=== PATIENT | female | born 1955 ===

== ENCOUNTER 2018-01-02 06:38 | Inpatient (IN) | payer MEDICARE ==
--- NOTE | 2017-12-20 16:43 | HP ---
HISTORY AND PHYSICAL: DATE OF ADMISSION/SURGERY: 01/02/18 SURGEON: Vivienne Mcgarry MD.* (DICTATED BY AUGUSTA DRAPER) PROCEDURE: Left total knee arthroplasty. CHIEF COMPLAINT: Left knee pain. HISTORY OF PRESENT ILLNESS: Ms. Ellison is a 62-year-old female with complaints of left knee pain. She has failed conservative management and elected to proceed with a left total knee arthroplasty which is scheduled for with Dr. Mcgarry. PAST MEDICAL HISTORY: 1. Hypothyroidism. 2. Depression and anxiety. 3. Hepatitis B. 4. Liver cirrhosis. PAST SURGICAL HISTORY: Denies. CURRENT MEDICATIONS: 1. Ventolin inhaler. 2. Celexa 60 mg daily. 3. Flunisolide nasal spray. 4. Starrucca 150 mg daily. 5. Loratadine 10 mg daily. 6. Multivitamin. 7. Omeprazole 40 mg daily. 8. Polyethylene glycol. 9. Levothyroxine 50 mcg daily. ALLERGIES: PENICILLIN. FAMILY HISTORY: Coronary artery disease, diabetes and cancer. SOCIAL HISTORY: She is a 62-year-old female. She lives with her sister. She has a history of alcohol abuse. She denies use of drugs or alcohol. She does not smoke. REVIEW OF SYSTEMS: A complete 14-point review of systems was reviewed with the patient and was positive for hypothyroidism, seizures and hepatitis B. PHYSICAL EXAMINATION GENERAL: She is well developed, well nourished, in no acute distress. VITAL SIGNS: She stands 5 feet 6 inches tall, weighs 185 pounds. Her blood pressure is 122/76, her heart rate is 58. HEENT: Normocephalic, atraumatic. NECK: Supple. No palpable lymph nodes. PULMONARY: The lungs are clear to auscultation bilaterally. CARDIO: Regular rate and rhythm. Strong S1, S2. ABDOMEN: Soft, nontender, nondistended. NEUROLOGIC: She is alert and oriented x3. Cranial nerves II through XII are intact. MUSCULOSKELETAL: Left lower extremity: The skin is intact. She has no open wounds or abrasions. She has some tenderness over the medial and lateral joint line. There is a moderate joint effusion. Range of motion is 5 to 120 degrees with patellofemoral crepitus. She has 2+ dorsalis pedis pulses, intact sensation and her lower extremity muscle group strengths are intact at 5/5. ASSESSMENT AND PLAN: Ms. Ellison is a 62-year-old female with complaints of left knee pain secondary to end-stage osteoarthritis. She has failed conservative management and elected to proceed with a left total knee arthroplasty, which is scheduled for 01/02/[address] Mcgarry discussed the risks and the benefits of the surgery at today's visit and all of her questions were answered. She will follow up with Dr. Mcgarry 2 weeks after the surgery. AUGUSTA DRAPER [id number]/[facility] #: [id number] MTDLindsey
[~2018-01-02 06:38] MED LIST: Acetaminophen IV 1GM/100ML * 1,000 MG/100 ML VIAL IVPB ONE; Buffered Lidocaine 0.9% SYRIN* 5 ML/SYR SYRINGE INTRADERM ONE; Dexamethasone IV* 4 MG/ML 1 ML (4 MG) IV SLOW PU ONE; Famotidine IV* 10 MG/ML 2 ML (20 mg) IV ONE; Gabapentin CAP(*) 300 MG PO ONE; Levalbuterol 0.63MG/3ML NEB* UNIT OF USE INH ONE
[2018-01-02] MEDS ORDERED: Famotidine IV* 10 MG/ML 2 ML (20 mg) ONE (07:01)
[2018-01-02] MEDS ORDERED: Gabapentin CAP(*) 300 MG ONE (07:01)
[2018-01-02] MEDS ORDERED: Dexamethasone IV* 4 MG/ML 1 ML (4 MG) ONE (07:01)
[2018-01-02] MEDS ORDERED: Levalbuterol 1.25MG/0.5ML NEB ONE (07:01)
[2018-01-02] MEDS ORDERED: Acetaminophen IV 1GM/100ML * 100 ML ONE (07:02)
[2018-01-02] MEDS ORDERED: Clindamycin 900 MG IVPREMIX(* 900 MG/50 ML SDV IV ONE (07:02)
[2018-01-02] MEDS ORDERED: Bupivacaine 0.5% SDV PF* 10-30ML VIAL ONE ×2 (07:43→08:58)
[2018-01-02] MEDS ORDERED: Midazolam* 1 MG/ML 10 ML VIAL (10 MG) ONE (07:49)
[2018-01-02] MEDS ORDERED: fentaNYL* 50 MCG/ML 2 ML VIAL (100 MCG VIAL) ONE (07:49)
[2018-01-02] MEDS ORDERED: celeCOXIB CAP* 200 MG PO ONE (08:17)
[2018-01-02] MEDS ORDERED: celeCOXIB CAP* 100 MG ONE (08:23)
[2018-01-02] MEDS ORDERED: Ondansetron INJ* 2 MG/ML VIAL ONE (08:58)
[2018-01-02] MEDS ORDERED: ROPIVACAINE 5 MG/ML 30 ML BTL (0.5%) ONE (08:58)
[2018-01-02] MEDS ORDERED: Bisacodyl SUPP* 10 MG SUPP PR PRN (09:18)
[2018-01-02] MEDS ORDERED: Cyclobenzaprine TAB* 10 MG PO PRN (09:18)
[2018-01-02] MEDS ORDERED: Morphine INJ* 2 MG/ML 1 ML CARPUJECT IV PRN (09:18)
[2018-01-02] MEDS ORDERED: Ondansetron TAB* 4 MG PO PRN (09:18)
[2018-01-02] MEDS ORDERED: Polyethylene Glycol 3350* 17 GM PACKET PO PRN (09:18)
[2018-01-02] MEDS ORDERED: Ondansetron INJ* 2 MG/ML VIAL IV PRN ×2 (09:18→10:01)
[2018-01-02] MEDS ORDERED: diPHENhydraMINE IV* 50 MG/ML 1 ml VIAL (BENADRYL) IV PRN (09:18)
[2018-01-02] MEDS ORDERED: Magnesium Hydroxide LIQ* 30 ML UDC PO PRN (09:18)
[2018-01-02] MEDS ORDERED: Acetaminophen TAB* 325 MG PO PRN (09:18)
[2018-01-02] MEDS ORDERED: Phenylephrine INJ* 10 MG/ML 1 ML VIAL (10 MG) ONE (09:23)
[2018-01-02] MEDS ORDERED: DiMENhydriNATE IV* 50 MG/ML VIAL IV PUSH PRN (10:01)
[2018-01-02] MEDS ORDERED: fentaNYL* 50 MCG/ML 2 ML VIAL (100 MCG VIAL) IV PRN (10:01)
[2018-01-02] MEDS ORDERED: HYDROmorphone INJ* 1 MG/ML CARPUJECT SYRINGE IV PRN (10:01)
[2018-01-02] MEDS ORDERED: Naloxone* 0.4 MG/ML 1 ML VIAL IV PRN (10:01)
[2018-01-02] MEDS ORDERED: Scopolamine 1.5 mg* PATCH TRANSDERM PRN (10:01)
--- NOTE | 2018-01-02 13:02 | RAD ---
HISTORY: Status post left knee arthroplasty COMPARISONS: None VIEWS: 2, Frontal and lateral views of the left knee FINDINGS: BONE DENSITY: Normal. BONES: The patient is status post left knee arthroplasty. There is no hardware failure or osteolysis. JOINTS: The patient is status post left knee arthroplasty. ALIGNMENT: There is no dislocation. SOFT TISSUES: There is post surgical change to the soft tissues. OTHER FINDINGS: None. IMPRESSION: STATUS POST LEFT KNEE ARTHROPLASTY
[2018-01-02] MEDS: oxyCODONE/Acetamin 5/325 MG* TAB PO PRN ×2 (15:45→16:46)
[2018-01-02] MEDS: Clindamycin 600 MG IVPREMIX(* 600 MG/50 ML SDV IV SCH (17:39)
[2018-01-02] MEDS: Magnesium Hydroxide LIQ* 30 ML UDC PO SCH (22:27)
[2018-01-02] MEDS: Docusate CAP* 100 MG PO SCH (22:27)
[2018-01-02] MEDS: oxyCODONE TAB* 5 MG TAB PO PRN (22:27)
[2018-01-02] MEDS: chlordiazePOXIDE CAP* 25 MG PO SCH (23:22)
[2018-01-03] MEDS: oxyCODONE/Acetamin 5/325 MG* TAB PO PRN ×4 (01:29→20:05)
[2018-01-03] MEDS: Clindamycin 600 MG IVPREMIX(* 600 MG/50 ML SDV IV SCH ×2 (01:30→09:38)
[2018-01-03] MEDS: oxyCODONE TAB* 5 MG TAB PO PRN ×2 (04:42→18:24)
[2018-01-03 05:57] LABS: Hematocrit 30 % (35-47); Hemoglobin 10.3 g/dl (12.0-16.0); Mean Platelet Volume 9.6 um3 (7.4-10.4); Platelet Count 143 10^3/ul (150-450)
[2018-01-03 06:17] LABS: EGFR Non-African American 68.2 (>60)
--- NOTE | 2018-01-03 07:38 | PN ---
Progress Note - Progress Note Date of Service: 01/03/18 SOAP: Subjective: Pt. is alert, c/o severe pain overnight. She has some weakness with EHL remaining, can dorsiflex. She is having R knee pain and would like a steroid injection. Objective: RLE - knee with moderate effusion, 5-120 degrees motion, ttp mjl. LLE - dressing changed, inc c/d/i. distally +df/pf, minimal EHL. full sens lt , 2+dp pulse. Vital Signs: Temp Pulse Resp BP Pulse Ox 98.6 F 60 18 101/52 97 01/02/18 23:49 01/02/18 23:49 01/03/18 04:49 01/02/18 23:49 01/02/18 23:49 Laboratory Results - last 24 hr 01/03/18 01/03/18 05:39 05:39 Hgb 10.3 L Hct 30 L Plt Count 143 L MPV 9.6 Sodium 139 Potassium 3.9 Chloride 106 Carbon Dioxide 27 Anion Gap 6 BUN 15 Creatinine 0.85 Est GFR ( Amer) 87.7 Est GFR (Non-Af Amer) 68.2 BUN/Creatinine Ratio 17.6 Glucose 126 H Calcium 8.6 Assessment: 62 yo F pod 1 s/p LTKA Plan: Change patient to inpatient admission for LTKA - uncontrolled pain and some EHL weakness - will need admission for additional pain control and gait training. wbat pt/ot lovenox today, coumadin tonight PROCEDURE: Time out performed at bedside. Under sterile conditions, 80 mg depomedrol and 6 cc 1/2% marcaine was injected into the right knee joint. Pt. tolerated the procedure well and had no complication.
[2018-01-03] MEDS: Docusate CAP* 100 MG PO SCH ×2 (08:16→20:05)
[2018-01-03] MEDS: Magnesium Hydroxide LIQ* 30 ML UDC PO SCH ×2 (08:16→20:06)
[2018-01-03] MEDS: Enoxaparin(*) 30 MG/0.3 ML SYR SUBCUT SCH (11:34)
--- NOTE | 2018-01-03 14:53 | OP ---
OPERATIVE REPORT: DATE OF OPERATION: 01/02/18 DATE OF : 59 SURGEON: Vivienne Mcgarry MD. BOXING TRAINER: AUGUSTA Meade. Ms. Casillas did help throughout the procedure with preparation of the leg, wound retraction, manipul ation of the knee, and wound closure. ANESTHESIOLOGIST: Dr. Elkins. ANESTHESIA: Spinal. PRE-OP DIAGNOSIS: Severe endstage degenerative osteoarthritis of the left knee joint. POST-OP DIAGNOSIS: Severe endstage degenerative osteoarthritis of the left knee joint. OPERATIVE PROCEDURE: Left total knee arthroplasty. TOURNIQUET TIME: 42 minutes. COMPLICATIONS: None. SPECIMENS: Bone and cartilage from the left knee joint was sent to Pathology. ESTIMATED BLOOD LOSS: 300 cc. HARDWARE USED: This is a cemented [employer] total knee arthroplasty hardware. Two packages o f Simplex bone cement. For the femur, a size 4 narrow left posterior stabilized Legion Oxinium femor al component. For the tibia, a size 3 left tibial base plate. For the insert, an 11-mm posterior st abilized articular insert, size 3-4. For the patella, a 32-mm 3-peg all poly patella. BRIEF HISTORY/INDICATIONS: Ms. Ellison is a 62-year-old female with years of increasingly severe l eft knee pain. She failed conservative treatment with the anti-inflammatories, pain medications, int raarticular injection, and home exercise program. Radiographs showed advanced arthritis in the left knee joint. Due to continued pain and decreased quality of life, she elected to undergo a left total knee arthroplasty. Informed consent was obtained from the patient. She understood the risks of anderson lurdes included, but were not limited to bleeding, infection, damage to nearby structures, continued pa in, need for further surgery, intraoperative fracture, nerve palsy, hardware failure or loosening, kn ee stiffness, loss of motion, stroke, heart attack, blood clot, and . She wished to to proceed. INTRAOPERATIVE FINDINGS: Intraoperatively, the patient was noted to have severe arthritis with compl ete loss of cartilage along the medial and patellofemoral compartments. DESCRIPTION OF PROCEDURE: Ms. Ellison was identified in the preanesthesia unit. Her left lower ext remity was marked as the correct operative side. Informed consent was signed and placed in the chart . Patient was taken to the operating room and placed under spinal anesthesia. A Rendon catheter was placed. Tourniquet was placed on the left thigh. The left lower extremity was prepped and draped in the usual sterile fashion. Preop time-out was made to correctly identify the patient, side, and sit e. Appropriate perioperative antibiotics were given within 1 hour of incision. Tourniquet was inflated until tourniquet time for this procedure was 42 minutes. A 12-cm midline inc ision was made with a 10-blade and carried down to the extensor mechanism. A new 10 blade was used t o make a standard medial parapatellar arthrotomy. The patella was subluxed laterally. Electrocauter y was used to subperiosteally elevate soft tissues off the superomedial to the mid sagittal plane. T he knee was flexed up. The anterior horn of the lateral meniscus and ACL were completely released. A drill was used to enter the distal femur. Intramedullary distal femoral cutting guide was pinned on the distal femur. 9-mm of distal femur was removed using the oscillating saw. Next, the external r otation guide was pinned on the distal femur and the distal femur was size 4. Size 4 multi- cutting jig was pinned on the distal femur. Oscillating saw was used to make the appropriate 4 chamfer cuts. The PCL was completely released and the tibia was subluxed anteriorly. Extramedullary tibial cutting guide was pinned on the proximal tibia. Oscillating saw was used to make a proximal tibial cut perpe ndicular to the mechanical axis of the tibia. The bone was carefully removed. The knee was brought out into full extension. A spacer block had good fit with satisfactory medial and lateral ligamentou s balancing. Flexion and extension gaps were well balanced. The knee was flexed up. Lamina spreade r was placed both medially and laterally. Any remaining meniscus was removed using electrocautery. Curved osteotome was used to remove any posterior osteophytes. Tibial tray and drop aaron were placed, once again confirmed a satisfactory tibial cut. This was confirmed. A left, narrow, size 4 femoral trial was impacted onto the distal femur and had a good fit. The box for the posterior stabilized implant was prepared using a reamer and box cut osteotome. Size 3 tibia l tray trial with an 11 mm insert trial was placed. The knee was taken through a range of motion. T he knee had full extension to 130 degrees of flexion with satisfactory patellofemoral tracking. The patella was everted. 9 mm of patellar bone and cartilage were carefully removed using an oscillating saw. Patella was sized to a size 32. Three peg holes were drilled through the size 32 guide. The 32 trial patellar trial was placed and the knee was taken through a range of motion. There was satis factory patellofemoral tracking. Next, all trials were removed. The tibia was subluxed anteriorly an d sized to a size 3. Proximal tibia was prepared using a size 3 keel punch. All bony cut surfaces w ere copiously irrigated with sterile saline and dried. Final implants were cemented into place start ing with the tibia followed by the femur and last the patella. An 11-mm insert trial was placed and the knee was taken out into full extension. Tourniquet was turned down at 42 minutes. The cement wa s allowed to fully cure. The knee was copiously irrigated with sterile saline. Electrocautery was u sed to obtain meticulous hemostasis. Once the cement had fully cured, the insert trial was removed. Final insert chosen was a 11 mm posterior stabilized articular insert size 3-4. This was locked int o position on the tibial tray. Stability of the insert was checked and rechecked and noted to be stab le. The extensor mechanism was closed over a medium Hemovac drain using interrupted #1 Vicryls. The rest of the incision was closed in a layered-fashion using 0 and 2-0 Vicryls. Skin was closed using running 3-0 nylon suture. Sterile Xeroform, 4x4s, and Webril were used to cover the incision. Rahul wrap and cold pack were placed over this. The patient's anesthesia was reversed without difficulty. She was taken to the PACU in stable condition. Intended weightbearing will be weightbearing as tole rated. Intended DVT prophylaxis will be Coumadin with a Lovenox bridge. [id number]/[facility] #: [id number]
[2018-01-03] MEDS ORDERED: NS 0.9% 500 ML* 500 ML IV ONE ×2 (17:00→22:50)
[2018-01-03] MEDS: chlordiazePOXIDE CAP* 25 MG PO SCH (18:24)
[2018-01-04] MEDS: oxyCODONE TAB* 5 MG TAB PO PRN (01:39)
[2018-01-04] MEDS: Levothyroxine TAB* 50 MCG TAB PO SCH (05:16)
--- NOTE | 2018-01-04 07:50 | PN ---
Progress Note - Progress Note Date of Service: 01/04/18 SOAP: Subjective: resting comfortably with no complaints Objective: Vital Signs Temp Pulse Resp BP Pulse Ox 98.6 F 93 18 129/52 95 01/04/18 07:20 01/04/18 07:20 01/04/18 07:20 01/04/18 07:20 01/04/18 07:20 Laboratory Last Values Hgb 10.3 g/dl (12.0-16.0) L 01/03/18 05:39 Hct 30 % (35-47) L 01/03/18 05:39 Plt Count 143 10^3/ul (150-450) L 01/03/18 05:39 MPV 9.6 um3 (7.4-10.4) 01/03/18 05:39 Sodium 139 mmol/L (139-145) 01/03/18 05:39 Potassium 3.9 mmol/L (3.5-5.0) 01/03/18 05:39 Chloride 106 mmol/L (101-111) 01/03/18 05:39 Carbon Dioxide 27 mmol/L (22-32) 01/03/18 05:39 Anion Gap 6 mmol/L (2-11) 01/03/18 05:39 BUN 15 mg/dL (6-24) 01/03/18 05:39 Creatinine 0.85 mg/dL (0.51-0.95) 01/03/18 05:39 Est GFR ( Amer) 87.7 (>60) 01/03/18 05:39 Est GFR (Non-Af Amer) 68.2 (>60) 01/03/18 05:39 BUN/Creatinine Ratio 17.6 (8-20) 01/03/18 05:39 Glucose 126 mg/dL (70-100) H 01/03/18 05:39 Calcium 8.6 mg/dL (8.6-10.3) 01/03/18 05:39 incision: c/d; dressing changed PE: able to dorsi flex/ plantar flex, mild weakness with EHL and ankle dorsi flexion; intact sensation Assessment: s/p left TKA Plan: 1) continue PT/OT- WBAT 2) continue Lovenox for DVT prophylaxis 3) likely home tomorrow
[2018-01-04 07:54] LABS: Hematocrit 25 % (35-47); Hemoglobin 8.6 g/dl (12.0-16.0)
[2018-01-04] MEDS: Magnesium Hydroxide LIQ* 30 ML UDC PO SCH ×2 (08:43→21:24)
[2018-01-04] MEDS: Docusate CAP* 100 MG PO SCH ×2 (08:43→21:24)
[2018-01-04] MEDS: Enoxaparin(*) 30 MG/0.3 ML SYR SUBCUT SCH (11:55)
[2018-01-04] MEDS: Ibuprofen TAB* 600 MG PO PRN ×2 (13:05→21:45)
[2018-01-04] MEDS: chlordiazePOXIDE CAP* 25 MG PO SCH (18:32)
[2018-01-04] MEDS: Albuterol HFA INHALER* 8 gm MDI INH PRN (18:33)
[2018-01-05] MEDS: Albuterol HFA INHALER* 8 gm MDI INH PRN ×2 (00:26→09:48)
[2018-01-05] MEDS ORDERED: Scopolamine PATCH Remove* 1 NOTE MISC PATCH OFF ONE (06:00)
[2018-01-05] MEDS: Levothyroxine TAB* 50 MCG TAB PO SCH (06:21)
[2018-01-05] MEDS: Docusate CAP* 100 MG PO SCH ×2 (07:42→20:30)
[2018-01-05] MEDS: Magnesium Hydroxide LIQ* 30 ML UDC PO SCH ×2 (07:43→20:30)
[2018-01-05] MEDS: Ibuprofen TAB* 600 MG PO PRN ×2 (08:53→20:12)
--- NOTE | 2018-01-05 10:52 | PN ---
Progress Note - Progress Note Date of Service: 01/05/18 SOAP: Subjective: resting comfortably with minimal complaints of pain, continues to have moderate drowsiness, hard to wake up for questions but A&O. Objective: Vital Signs Temp Pulse Resp BP Pulse Ox 98.1 F 82 16 129/48 99 01/05/18 07:32 01/05/18 07:32 01/05/18 08:00 01/05/18 07:32 01/05/18 08:00 Laboratory Last Values Hgb 8.6 g/dl (12.0-16.0) L 01/04/18 07:45 Hct 25 % (35-47) L 01/04/18 07:45 Plt Count 143 10^3/ul (150-450) L 01/03/18 05:39 MPV 9.6 um3 (7.4-10.4) 01/03/18 05:39 Sodium 139 mmol/L (139-145) 01/03/18 05:39 Potassium 3.9 mmol/L (3.5-5.0) 01/03/18 05:39 Chloride 106 mmol/L (101-111) 01/03/18 05:39 Carbon Dioxide 27 mmol/L (22-32) 01/03/18 05:39 Anion Gap 6 mmol/L (2-11) 01/03/18 05:39 BUN 15 mg/dL (6-24) 01/03/18 05:39 Creatinine 0.85 mg/dL (0.51-0.95) 01/03/18 05:39 Est GFR ( Amer) 87.7 (>60) 01/03/18 05:39 Est GFR (Non-Af Amer) 68.2 (>60) 01/03/18 05:39 BUN/Creatinine Ratio 17.6 (8-20) 01/03/18 05:39 Glucose 126 mg/dL (70-100) H 01/03/18 05:39 Calcium 8.6 mg/dL (8.6-10.3) 01/03/18 05:39 incision: c/d PE: weak EHL/ankle dorsi flexion but able to dorsi flex and lift toe; intact sensation Assessment: s/p left TKA Plan: 1) PT/OT- will work with stairs this afternoon 2) Lovenox for DVT prophylaxis 3) hopefully home tomorrow
[2018-01-05 12:33] LABS: Hematocrit 23 % (35-47); Hemoglobin 7.9 g/dl (12.0-16.0)
[2018-01-05] MEDS: Enoxaparin(*) 30 MG/0.3 ML SYR SUBCUT SCH (12:40)
[2018-01-06] MEDS: Ibuprofen TAB* 600 MG PO PRN ×2 (04:39→10:41)
[2018-01-06] MEDS: Levothyroxine TAB* 50 MCG TAB PO SCH (04:39)
[2018-01-06 05:56] LABS: Hematocrit 27 % (35-47)
[2018-01-06 07:51] VITALS: BP 118/59
--- NOTE | 2018-01-06 08:40 | PN ---
Progress Note - Progress Note Date of Service: 01/06/18 SOAP: Subjective: 62 y/o female s/p L TKA by Dr. Mcgarry 01/02. VSS, blood pressure slightly low- normal, afebrile overnight. Patient feeling well, eager for D/C to home. No questions/ complaints. Objective: General- Well appearing, NAD, AO sitting in chair comfortably MSK- LLE- + DF/PF, PT 2+, negative homans sign L LE, dressing changed, + ecchymosis around knee, calf, non-tender, no drainage from incision. C/D/I. Redressing without difficulty. SITLT. Vital Signs Temp 97.6 F 01/06/18 07:33 Pulse 75 01/06/18 07:33 Resp 14 01/06/18 07:33 BP 118/59 01/06/18 07:33 Pulse Ox 98 01/06/18 07:33 Intake & Output 01/05/18 01/06/18 01/06/18 18:59 06:59 18:59 Intake Total 1081 1000 100 Output Total 1400 550 400 Balance -319 450 -300 Intake: IV Fluids 251 LR 251 Oral 830 1000 100 Output: Urine 1400 550 400 Other: Estimated Void Small # Bowel Movements 1 Estimated Stool Amount Small # Voids 1 Assessment: Stable 62 y/o female s/p L TKA by Dr. Mcgarry 01/02. Plan: - DVT prophylaxis- lovenox. ASA 325mg BID for home. - Continue PT/ OT - working well with PT, cleared for home today if continues to do well. - Follow up with Dr. Mcgarry within 10-14 days - H&H - stable, improved appropriately s/p 1 unit 01/05. - post-op IV ABX - completed. - D/C to home today with home services.
[2018-01-06] MEDS: Magnesium Hydroxide LIQ* 30 ML UDC PO SCH (09:17)
[2018-01-06] MEDS: Docusate CAP* 100 MG PO SCH (09:17)
[2018-01-06] MEDS: Enoxaparin(*) 30 MG/0.3 ML SYR SUBCUT SCH (10:41)
--- NOTE | 2018-01-08 03:59 | DS ---
DISCHARGE SUMMARY: DATE OF ADMISSION: 01/02/18 DATE OF DISCHARGE: 01/06/18 PROVIDER: Dr. Vivienne Mcgarry.* (DICTATED BY AUGUSTA RODRIGUEZ) CHIEF COMPLAINT: 1. Left knee pain. 2. Hypothyroidism. 3. Depression. 4. Anxiety. 5. Hepatitis C. 6. Liver cirrhosis. DISCHARGE DIAGNOSES: 1. Status post left total knee arthroplasty. 2. Hypothyroidism. 3. Depression. 4. Anxiety. 5. Hepatitis C. 6. Liver cirrhosis. PROCEDURE: Left total knee arthroplasty. CONSULTATIONS: 1. Physical Therapy. 2. Occupational Therapy. 3. Pain Management. BRIEF HISTORY: Ms. Ellison is a pleasant 62-year-old female with end-stage degenerative osteoarthritis of the left knee, who failed conservative treatment and elected to undergo a left total knee arthroplasty by Dr. Vivienne Mcgarry on . HOSPITAL COURSE: Mrs. Ellison was admitted to [facility] on , where she underwent uncomplicated left total knee arthroplasty, estimated blood loss 300 cc. Postoperatively, she recovered on the surgical short stay unit. Her Rendon was removed on postoperative day #2. She was voiding on her own without difficulty. The patient did have some complaints of postoperative pain as well as overall weakness and some fatigue associated with pain medications. On postoperative day #5, the patient was medically and orthopedically stable for discharge to go home with home services. She advanced appropriately with physical therapy and occupational therapy. Her DVT prophylaxis was managed with Lovenox in- house. She will restart on her home medications. PHYSICAL EXAMINATION: General: Well appearing, in no acute distress, alert and oriented, sitting in chair comfortably. Vital Signs: 97.6 temperature, pulse 75, respirations 14, blood pressure 103/59, oxygen saturation 98% on room air. Examination of the left lower extremity showed a positive dorsiflexion and plantar flexion bilaterally with posterior tibial pulses 2+. Negative Homans sign. Left lower extremity, calf. Right calf is nontender. No drainage. No deformity of the incision site. The area was redressed without difficulty. Sensation is intact to lower leg. LABORATORY DATA: On date of discharge include, H and H of 9.0 and 25. DISCHARGE MEDICATIONS: 1. Aspirin 325 mg p.o. b.i.d. 2. Albuterol inhaler 2 puffs inhalation 3 to 4 hours. 3. Celexa 60 mg p.o. q.a.m. 4. Colace 100 mg p.o. b.i.d. 5. Fluticasone 2 sprays on bilateral nares q.a.m. 6. Motrin 600 mg q.6 hours p.r.n. for pain. 7. Synthroid 50 mcg p.o. q.a.m. 8. Claritin 10 mg p.o. q.a.m. 9. Multivitamin 1 tablet daily. 10. Omeprazole 40 mg p.o. q.a.m. 11. Oxycodone/acetaminophen 5/325 one to two 2 tabs every 4 to 6 hours as needed for pain. 12. Polyethylene glycol 1 packet q.a.m. p.r.n. CONDITION ON DISCHARGE: Stable. DISCHARGE INSTRUCTIONS: Ms. Ellison is a very pleasant 62-year-old female, postoperative day #4, status post left total knee arthroplasty, which was uncomplicated. She is orthopedically and medically stable for discharge to go home with home services. Her labs and vital signs are stable. She will restart her home medications. She will take aspirin 325 mg p.o. b.i.d. for DVT prophylaxis. She will have home physical therapy twice a week. She will take Percocet as needed for pain control and Colace up to 3 times a day for constipation. She will follow up with Dr. Mcgarry in approximately 10 to 14 days for incision check and suture removal. She was instructed to go immediately to the ER should she develop chest pain or shortness of breath. If she develops fever, increasing pain, or redness, she is to call the office immediately. AUGUSTA RODRIGUEZ [id number]/[facility] #: [id number] YO
== END 2018-01-06 11:15 | disposition home health service (06) | DRG 470 ==
LOC: INTOOBSV 06:38 → AA 06:38 → SSU 14:13 → OBSVTOIN 01-03 13:07 → SSU 01-04 16:17
PROVIDERS: ADMIT Orthopaedic Surgery Adult Reconstructive Orthopaedic Surgery; ATTEND Orthopaedic Surgery Adult Reconstructive Orthopaedic Surgery
PROC: 0SRD069 Replacement of Left Knee Joint with Oxidized Zirconium on Polyethylene Synthetic Substitute, Cemented, Open Approach (ICD-10-PCS; principal; 2018-01-02 09:00)
PROC: 3E0U3BZ Introduction of Anesthetic Agent into Joints, Percutaneous Approach (ICD-10-PCS; 2018-01-03)
PROC: 30233N1 Transfusion of Nonautologous Red Blood Cells into Peripheral Vein, Percutaneous Approach (ICD-10-PCS; 2018-01-05)
DX: M17.12 Unilateral primary osteoarthritis, left knee (principal); D62 Acute posthemorrhagic anemia; G89.18 Other acute postprocedural pain; E03.9 Hypothyroidism, unspecified; F32.9 Major depressive disorder, single episode, unspecified; F41.9 Anxiety disorder, unspecified; B19.20 Unspecified viral hepatitis C without hepatic coma; K74.60 Unspecified cirrhosis of liver; M25.561 Pain in right knee; M25.762 Osteophyte, left knee; F10.21 Alcohol dependence, in remission; Z79.899 Other long term (current) drug therapy; Z88.0 Allergy status to penicillin; Z82.49 Family history of ischemic heart disease and other diseases of the circulatory system; Z83.3 Family history of diabetes mellitus; Z80.9 Family history of malignant neoplasm, unspecified; G40.909 Epilepsy, unspecified, not intractable, without status epilepticus
CPT/HCPCS: 36415; 80048; 85014; 85018; 85049; 86850; 86900; 86901; 86922; 88305; 88311; 94760; A9270-GY; C1776; G0378; G8978-GP-CI; G8978-GP-CJ; G8978-GP-CK; G8978-GP-CL; G8979-GP-CI; G8979-GP-CJ; G8980-GP-CI; G8987-GO-CK; G8988-GO-CI; J1100; J1650; J2250; J2405; J2795; J3010; P9040